=== PATIENT | male | born 1955 | race Caucasian/White ===

== ENCOUNTER 2021-01-27 12:24 | Emergency (ER) | payer MEDICARE, OTHER ==
[~2021-01-27] VITALS: Ht 165.1 cm; Wt 65.8 kg
[2021-01-27 12:33] VITALS: BP 137/89
[2021-01-27] MEDS ORDERED: IBUP-1955 PO (13:14)
--- NOTE | 2021-01-27 13:20 | NUR ---
Patient discharged to home in stable condition. Written and verbal after care instructions given. Patient verbalizes understanding of instruction.
== END 2021-01-27 13:21 | disposition home or self-care (01) ==
LOC: ER 12:43
DX: M79.10 Myalgia, unspecified site (principal); M54.6 Pain in thoracic spine; I10 Essential (primary) hypertension; E11.9 Type 2 diabetes mellitus without complications; V49.59XA Passenger injured in collision with other motor vehicles in traffic accident, initial encounter; Y93.89 Activity, other specified; Y92.413 State road as the place of occurrence of the external cause; Y99.8 Other external cause status